=== PATIENT | male | born 1990 | race Caucasian/White ===

== ENCOUNTER 2017-10-25 13:59 | Emergency (ER) | payer MEDICAID | END 2017-10-25 15:18 | disposition home or self-care (01) | LOC: D.ER 13:59 | DX: S60.221A Contusion of right hand, initial encounter (principal); W22.8XXA Striking against or struck by other objects, initial encounter; Y93.89 Activity, other specified; Y92.019 Unspecified place in single-family (private) house as the place of occurrence of the external cause; F17.200 Nicotine dependence, unspecified, uncomplicated ==

== ENCOUNTER 2017-12-25 21:53 | Emergency (ER) | payer MEDICAID ==
[2017-12-25 22:26] LABS: BASOPHILS 0.4 % (0-2); EOSINOPHILS 1.2 % (0-7); HEMATOCRIT 44.2 % (42.0-54.0); HEMOGLOBIN 15.8 g/dL (13.5-17.5); LYMPHOCYTES 24.5 % (15-50); MCH 31.7 pg (26.0-34.0); MCHC 35.7 g/dL (31.0-37.0); MCV 88.6 fL (80.0-100.0); MEAN PLATELET VOLUME 11.1 fL (7.4-10.4); MONOCYTES 10.4 % (2-11); NEUTROPHILS 63.5 % (40-80); PLATELET COUNT 132 10x3/uL (130-400); RBC 4.99 10x6/uL (4.20-6.10); RDW 12.7 % (11.5-14.5); WBC 4.8 10x3/uL (4.8-10.8)
[2017-12-25 22:50] LABS: ALBUMIN 3.6 g/dL (3.4-5.0); ALKALINE PHOSPHATASE 176 U/L (46-116); ALT (SGPT) 127 U/L (10-68); CALC OSMOLALITY 281 mosm/kg (275-300); CALCIUM 8.8 mg/dL (8.5-10.1); CARBON DIOXIDE 24.9 mmol/L (21.0-32.0); CHLORIDE - SERUM 103 mmol/L (98-107); CREATININE - SERUM 1.1 mg/dL (0.6-1.3); GLUCOSE 94 mg/dL (74-106); POTASSIUM - SERUM 3.7 mmol/L (3.5-5.1); PROTEIN - SERUM 7.1 g/dL (6.4-8.2); SODIUM 141 mmol/L (136-145); UREA NITROGEN 15 mg/dL (7-18); eGFR NON AFRICAN AMERICAN 85 mL/min (90-120)
[2017-12-25 23:01] LABS: CHOL - HDL RATIO 4.3 ratio (2.3-4.9); CHOLESTEROL, TOTAL 141 mg/dL (0-200); CREATINE KINASE 81 UL (21-232); HDL CHOLESTEROL 33 mg/dL (32-96); LDL CHOLESTEROL 92 mg/dL (0-100); LDL-HDL RATIO 2.8 ratio (1.5-3.5); TRIGLYCERIDE 81 mg/dL (30-200)
[2017-12-25 23:08] LABS: TROPONIN-I < 0.017 ng/mL (0.000-0.060)
== END 2017-12-26 01:50 | disposition home or self-care (01) ==
LOC: D.ER 21:53
PROVIDERS: Family Medicine
DX: R07.89 Other chest pain (principal)

== ENCOUNTER 2018-07-18 11:51 | Observation (INO) | payer MEDICAID ==
[~2018-07-18] VITALS: Ht 154.9 cm; Wt 93.2 kg
--- NOTE | ~2018-07-18 | MORECARE ---
CASE MANAGEMENT DISCHARGE SUMMARY PATIENT: VALENTINA CONTRERAS UNIT: [id number] ADM DATE: 07/18/18 AGE: 27 : 89 SEX: M ROOM/BED: D.2115 AUTHOR: BRANDON AVILA PHYSICIAN: REFERRING PHYSICIAN: MERLINE CHUA MD DATE OF SERVICE: 07/23/18 Discharge Plan Patient Name: VALENTINA CONTRERAS Facility: [facility]:[place] : 1990 Planned Disposition: Home Anticipated Discharge Date: 07/20/18 Discharge Date: 07/20/2018 Expected LOS: 2 Initial Reviewer: [email or web address] Initial Review Date: 07/23/2018 Generated: 07/23/18 11:30 am Patient Name: VALENTINA CONTRERAS Page 20509 at 1030 All edits/amendments must be made on the electronic document DICTATION DATE: 07/23/18 1029 QA DEVELOPER: CESILIA 07/23/18 1029 RPT#: [id number] DC DATE:07/20/18 STATUS: DIS IN [facility] [address] [place] [address] END OF REPORT
--- NOTE | ~2018-07-18 | MORECARE ---
CASE MANAGEMENT DISCHARGE SUMMARY PATIENT: VALENTINA CONTRERAS UNIT: [id number] ADM DATE: 07/18/18 AGE: 27 : 89 SEX: M ROOM/BED: D.2115 AUTHOR: BRANDON AVILA PHYSICIAN: REFERRING PHYSICIAN: MERLINE CHUA MD DATE OF SERVICE: 07/23/18 Discharge Plan Patient Name: VALENTINA CONTRERAS Facility: [facility]:[place] : 1990 Planned Disposition: Home Anticipated Discharge Date: 07/20/18 Discharge Date: 07/20/2018 Expected LOS: 2 Initial Reviewer: [email or web address] Initial Review Date: 07/23/2018 Generated: 07/23/18 11:40 am Last DP export: 07/23/18 9:30 Patient Name: VALENTINA CONTRERAS Page [id number] at 1040 All edits/amendments must be made on the electronic document DICTATION DATE: 07/23/18 1040 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
[2018-07-18 13:14] LABS: BASOPHILS 0.4 % (0-2); EOSINOPHILS 2.4 % (0-7); HEMATOCRIT 46.6 % (42.0-54.0); HEMOGLOBIN 16.5 g/dL (13.5-17.5); IMMATURE GRANULOCYTES 0.1 % (0-5); LYMPHOCYTES 24.2 % (15-50); MCHC 35.4 g/dL (31.0-37.0); MCV 90.5 fL (80.0-100.0); MEAN PLATELET VOLUME 11.1 fL (7.4-10.4); NEUTROPHILS 62.9 % (40-80); RBC 5.15 10x6/uL (4.20-6.10); WBC 7.1 10x3/uL (4.8-10.8)
[2018-07-18 13:19] LABS: PLATELET COUNT 173 10x3/uL (130-400)
[2018-07-18 13:26] LABS: INR 1.02 (0.85-1.17); PROTIME 12.9 SECONDS (11.6-15.0)
[2018-07-18 13:28] LABS: ALKALINE PHOSPHATASE 174 U/L (46-116); ALT (SGPT) 70 U/L (10-68); BILIRUBIN - TOTAL 0.73 mg/dL (0.2-1.3); CALC OSMOLALITY 276 mosm/kg (275-300); CALCIUM 9.4 mg/dL (8.5-10.1); CARBON DIOXIDE 23.4 mmol/L (21.0-32.0); CHLORIDE - SERUM 103 mmol/L (98-107); GLUCOSE 86 mg/dL (74-106); POTASSIUM - SERUM 3.6 mmol/L (3.5-5.1); PROTEIN - SERUM 8.1 g/dL (6.4-8.2); SODIUM 139 mmol/L (136-145); UREA NITROGEN 12 mg/dL (7-18); eGFR NON AFRICAN AMERICAN > 90 mL/min (90-120)
[2018-07-18 13:39] LABS: CKMB 0.7 U/L (0.0-3.6); CREATINE KINASE 76 UL (21-232); MAGNESIUM - SERUM 2.3 mg/dL (1.8-2.4)
[2018-07-18 13:40] LABS: TROPONIN-I < 0.017 ng/mL (0.000-0.060)
[2018-07-18 14:38] VITALS: BP 141/89
[2018-07-18 15:15] LABS: CREATINE KINASE 70 UL (21-232); TROPONIN-I < 0.017 ng/mL (0.000-0.060)
[2018-07-18 16:25] VITALS: BP 135/85; BMI 38.8
[2018-07-18 17:58] LABS: ERYTHROCYTE SEDIMENTATION RATE 9 mm/hr (0-15)
[2018-07-18 20:18] VITALS: BP 118/66
[2018-07-18 21:50] LABS: CKMB 0.3 U/L (0.0-3.6); CREATINE KINASE 61 UL (21-232)
[2018-07-18 21:55] LABS: TROPONIN-I < 0.017 ng/mL (0.000-0.060)
[2018-07-19 00:29] VITALS: BP 96/57
[2018-07-19 04:00] VITALS: BP 108/74
[2018-07-19 05:57] LABS: BASOPHILS 0 % (0-2); EOSINOPHILS 0 % (0-7); HEMATOCRIT 42.7 % (42.0-54.0); IMMATURE GRANULOCYTES 0.2 % (0-5); LYMPHOCYTES 11.2 % (15-50); MCH 31.6 pg (26.0-34.0); MCHC 35.1 g/dL (31.0-37.0); MCV 90.1 fL (80.0-100.0); MEAN PLATELET VOLUME 11.2 fL (7.4-10.4); NEUTROPHILS 86.6 % (40-80); PLATELET COUNT 182 10x3/uL (130-400); RBC 4.74 10x6/uL (4.20-6.10); RDW 12.8 % (11.5-14.5)
[2018-07-19 06:22] LABS: WBC 9.8 10x3/uL (4.8-10.8)
[2018-07-19 06:38] LABS: ALBUMIN 3.2 g/dL (3.4-5.0); ALKALINE PHOSPHATASE 141 U/L (46-116); ALT (SGPT) 57 U/L (10-68); BILIRUBIN - TOTAL 0.48 mg/dL (0.2-1.3); CALC OSMOLALITY 281 mosm/kg (275-300); CALCIUM 8.9 mg/dL (8.5-10.1); CARBON DIOXIDE 20.6 mmol/L (21.0-32.0); CHLORIDE - SERUM 106 mmol/L (98-107); CREATININE - SERUM 0.9 mg/dL (0.6-1.3); GLUCOSE 154 mg/dL (74-106); POTASSIUM - SERUM 4.1 mmol/L (3.5-5.1); PROTEIN - SERUM 6.8 g/dL (6.4-8.2); SODIUM 139 mmol/L (136-145); UREA NITROGEN 16 mg/dL (7-18); eGFR NON AFRICAN AMERICAN > 90 mL/min (90-120)
[2018-07-19 07:02] LABS: CKMB 0.3 U/L (0.0-3.6); CREATINE KINASE 49 UL (21-232)
[2018-07-19 07:03] LABS: TROPONIN-I < 0.017 ng/mL (0.000-0.060)
[2018-07-19 07:37] VITALS: BP 114/69
[2018-07-19 12:12] VITALS: BP 122/70
[2018-07-19 13:13] VITALS: Ht 154.9 cm; Wt 93.2 kg
[2018-07-19 16:50] LABS: UDS - AMPHET NEGATIVE QUAL (NEGATIVE); UDS - BARB NEGATIVE QUAL (NEGATIVE); UDS - BENZO NEGATIVE QUAL (NEGATIVE); UDS - COCAINE NEGATIVE QUAL (NEGATIVE); UDS - OPIATE NEGATIVE QUAL (NEGATIVE); UDS - PCP NEGATIVE QUAL (NEGATIVE); UDS - THC NEGATIVE QUAL (NEGATIVE)
[2018-07-19 16:57] LABS: APPEARANCE CLEAR (CLEAR); COLOR YELLOW (YELLOW); NITRITE NEGATIVE (NEGATIVE); SPECIFIC GRAVITY 1.015 (1.005-1.020)
[2018-07-19 16:58] LABS: BILIRUBIN NEGATIVE (NEGATIVE); GLUCOSE NEGATIVE (NEGATIVE); KETONE NEGATIVE (NEGATIVE); PROTEIN NEGATIVE (NEGATIVE); UROBILINOGEN NORMAL (NORMAL)
[2018-07-19 20:45] VITALS: BP 124/80
[2018-07-20 00:17] VITALS: BP 109/56
[2018-07-20 05:04] VITALS: BP 116/48
[2018-07-20 09:26] VITALS: BP 115/72
[2018-07-20 12:14] VITALS: BP 98/49
[2018-07-20 16:18] VITALS: BP 119/67
== END 2018-07-20 16:30 | disposition left against medical advice (07) ==
LOC: D.ER 11:51 → D.EDHOLD 14:43 → OBSVTIME 14:43 → D.M2 14:43
PROVIDERS: Family Medicine; Internal Medicine Cardiovascular Disease; Internal Medicine Nephrology
DX: I20.9 Angina pectoris, unspecified (principal); F17.213 Nicotine dependence, cigarettes, with withdrawal

== ENCOUNTER 2019-01-14 13:28 | Emergency (ER) | payer MEDICAID ==
[~2019-01-14] VITALS: Ht 177.8 cm; Wt 97.7 kg
[2019-01-14 13:32] VITALS: Ht 177.8 cm; Wt 97.7 kg
[2019-01-14] MEDS ORDERED: LOPRESSOR25 MG PO (13:34)
[2019-01-14] MEDS ORDERED: PROPAFENONE HC150 MG PO (13:35)
[2019-01-14 14:12] LABS: BASOPHILS 0.6 % (0-2); EOSINOPHILS 3.1 % (0-7); HEMATOCRIT 47.4 % (42.0-54.0); HEMOGLOBIN 16.6 g/dL (13.5-17.5); IMMATURE GRANULOCYTES 0.2 % (0-5); LYMPHOCYTES 28.3 % (15-50); MCH 31.3 pg (26.0-34.0); MCV 89.3 fL (80.0-100.0); MEAN PLATELET VOLUME 11.4 fL (7.4-10.4); MONOCYTES 8.8 % (2-11); PLATELET COUNT 143 10x3/uL (130-400); RBC 5.31 10x6/uL (4.20-6.10); RDW 12.9 % (11.5-14.5); WBC 5.4 10x3/uL (4.8-10.8)
[2019-01-14 14:27] LABS: ALBUMIN 3.7 g/dL (3.4-5.0); ALKALINE PHOSPHATASE 176 U/L (46-116); ALT (SGPT) 121 U/L (10-68); BILIRUBIN - TOTAL 0.29 mg/dL (0.2-1.3); CALC OSMOLALITY 278 mosm/kg (275-300); CALCIUM 9.4 mg/dL (8.5-10.1); CARBON DIOXIDE 26.2 mmol/L (21.0-32.0); CHLORIDE - SERUM 105 mmol/L (98-107); CREATININE - SERUM 0.9 mg/dL (0.6-1.3); GLUCOSE 97 mg/dL (74-106); POTASSIUM - SERUM 4.1 mmol/L (3.5-5.1); PROTEIN - SERUM 7.3 g/dL (6.4-8.2); SODIUM 140 mmol/L (136-145); UREA NITROGEN 13 mg/dL (7-18); eGFR NON AFRICAN AMERICAN > 90 mL/min (90-120)
[2019-01-14 14:37] LABS: CKMB 0.4 U/L (0.0-3.6); CREATINE KINASE 70 UL (21-232); TROPONIN-I < 0.017 ng/mL (0.000-0.060)
[2019-01-14] MEDS ORDERED: INDOCIN25 MG PO (17:15)
[2019-01-14 17:27] VITALS: BP 133/59
== END 2019-01-14 17:28 | disposition home or self-care (01) ==
LOC: D.ER 13:28
PROVIDERS: Family Medicine
DX: R07.89 Other chest pain (principal)

== ENCOUNTER 2019-02-25 11:39 | Emergency (ER) | payer MEDICAID ==
[~2019-02-25] VITALS: Ht 177.8 cm; Wt 90.9 kg
[~2019-02-25 11:39] MED LIST: INDOCIN25 MG PO; LOPRESSOR25 MG PO; PROPAFENONE HC150 MG PO
[2019-02-25 11:42] VITALS: Ht 177.8 cm; Wt 90.9 kg
[2019-02-25 12:09] LABS: BASOPHILS 0.6 % (0-2); EOSINOPHILS 2.9 % (0-7); HEMATOCRIT 47.6 % (42.0-54.0); HEMOGLOBIN 17.2 g/dL (13.5-17.5); IMMATURE GRANULOCYTES 0.2 % (0-5); LYMPHOCYTES 21.3 % (15-50); MCH 31.6 pg (26.0-34.0); MCHC 36.1 g/dL (31.0-37.0); MCV 87.3 fL (80.0-100.0); MEAN PLATELET VOLUME 10.8 fL (7.4-10.4); MONOCYTES 7.9 % (2-11); NEUTROPHILS 67.1 % (40-80); PLATELET COUNT 135 10x3/uL (130-400); RBC 5.45 10x6/uL (4.20-6.10); RDW 13.4 % (11.5-14.5); WBC 6.6 10x3/uL (4.8-10.8)
[2019-02-25 12:22] LABS: ALBUMIN 3.1 g/dL (3.4-5.0); ALKALINE PHOSPHATASE 169 U/L (46-116); ALT (SGPT) 133 U/L (10-68); AMYLASE - SERUM 35 U/L (25-115); BILIRUBIN - TOTAL 0.59 mg/dL (0.2-1.3); CALC OSMOLALITY 275 mosm/kg (275-300); CALCIUM 8.7 mg/dL (8.5-10.1); CHLORIDE - SERUM 105 mmol/L (98-107); CREATININE - SERUM 0.9 mg/dL (0.6-1.3); GLUCOSE 96 mg/dL (74-106); LIPASE 60 U/L (73-393); POTASSIUM - SERUM 4.1 mmol/L (3.5-5.1); PROTEIN - SERUM 6.1 g/dL (6.4-8.2); SODIUM 139 mmol/L (136-145); UREA NITROGEN 8 mg/dL (7-18); eGFR NON AFRICAN AMERICAN > 90 mL/min (90-120)
[2019-02-25 12:27] LABS: APPEARANCE CLEAR (CLEAR); BILIRUBIN NEGATIVE (NEGATIVE); COLOR YELLOW (YELLOW); GLUCOSE NEGATIVE (NEGATIVE); KETONE NEGATIVE (NEGATIVE); NITRITE NEGATIVE (NEGATIVE); PROTEIN NEGATIVE (NEGATIVE); SPECIFIC GRAVITY 1.005 (1.005-1.020); UROBILINOGEN NORMAL (NORMAL)
[2019-02-25] MEDS ORDERED: ZOFRAN ODT4 MG/UDTAB PO (14:28)
[2019-02-25] MEDS ORDERED: BENTYL 20 MG TA20 MG PO (14:28)
[2019-02-25 14:56] VITALS: BP 120/75
== END 2019-02-25 14:56 | disposition home or self-care (01) ==
LOC: D.ER 11:39
PROVIDERS: Emergency Medicine
DX: A08.4 Viral intestinal infection, unspecified (principal)